=== PATIENT | male | born 1955 | race Two or more races ===

== ENCOUNTER 2023-03-20 07:34 | Outpatient (CLI) | payer OTHER | END 2023-03-20 07:35 | disposition home or self-care (01) | LOC: NUCLEAR 07:34 | PROVIDERS: ATTEND Internal Medicine | DX: I25.119 Atherosclerotic heart disease of native coronary artery with unspecified angina pectoris (principal); I11.9 Hypertensive heart disease without heart failure | CPT/HCPCS: 78452; 93017; A9500 ==